=== PATIENT | male | born 1985 | race Two or more races ===

== ENCOUNTER 2017-02-28 20:51 | Emergency (ER) | payer OTHER ==
[2017-02-28 21:26] LABS: BASOPHIL % 0.3 % (0-2); PLATELET COUNT 299 x10^3mcL (130-400); RED CELL DISTRIBUTION WIDTH 12.8 % (11.5-14.5)
[2017-02-28 21:31] LABS: CALCIUM 8.5 mg/dL (8.5-10.1); CARBON DIOXIDE 30.7 mmol/L (21-32); CHLORIDE SERUM 102 mmol/L (98-107); GFR1 > 60 mL/min; GLUCOSE SERUM 108 mg/dL (74-106); POTASSIUM SERUM 3.5 mmol/L (3.5-5.1); SODIUM SERUM 140 mmol/L (136-145)
[2017-02-28 21:35] LABS: ALKALINE PHOSPHATASE 163 U/L (46-116); ALT/SGPT 32 U/L (16-63); AST/SGOT 18 U/L (15-37); BILIRUBIN TOTAL 0.3 mg/dL (0.20-1.00); LIPASE 88 IU/L (73-393); TOTAL PROTEIN, SERUM 8.2 g/dL (6.4-8.2)
[2017-02-28 23:02] VITALS: BP 128/82
== END 2017-02-28 23:02 | disposition home or self-care (01) ==
LOC: ED 20:51
PROVIDERS: Emergency Medicine
DX: N20.1 Calculus of ureter (principal); R05 Cough; R59.0 Localized enlarged lymph nodes
CPT/HCPCS: J1885; J2270; J2405; J7030; Q0092